=== PATIENT | male | born 1950 | race Caucasian/White ===

== ENCOUNTER 2020-11-16 15:03 | Inpatient (IN) | payer MEDICARE, OTHER ==
[~2020-11-16 15:03] MED LIST: Iopamidol-370 76% 500 ML 1 ML ONE
[2020-11-16] MEDS ORDERED: Norepinephrine 8 MG/0.9% NS 250 ML ONE (15:20)
[2020-11-16] MEDS ORDERED: Cefepime 2 GM VIAL ONE (15:37)
[2020-11-16 15:40] LABS: Actual Bicarbonate (HCO3a) 26.1 mEq/L (22-28); Analyzer IN Cardio ER; Base Excess (BEa) 0.1 mEq/L (-2.0 to +3.0); CO2 Tension 47.2 mmHg (35.0-45.0); Calcium, Ionized (arterial) 1.24 mmol/L (1.12-1.30); Carboxyhemoglobin (COHb) 0.7 gm% (0.0-3.0); Hemoglobin (Hb) 15.6 g/dL (14.0-18.0); O2 Tension (PaO2), arterial 93.3 mmHg (> 80.0); Potassium - ABG Lab 3.96 mmol/L (3.70-5.30); pH, Arterial 7.36 (7.35-7.45)
[2020-11-16 15:41] LABS: Puncture Site RBA
[2020-11-16 16:04] LABS: #Eosinphils 0.1 thou/uL (0.0-0.7); #Monocytes 1.3 thou/uL (0.11-0.59); #Neutrophils 10.3 thou/uL (1.40-6.50); %Basophils 0.2 % (0.0-1.0); %Eosinophils 0.9 % (0.0-10.0); %Lymphocytes 14.7 % (21.0-51.0); %Monocytes 9.2 % (0.0-10.0); Hemoglobin 15.8 g/dL (14.0-18.0); Mean Corpuscular HGB CONC 31.2 g/dL (32.0-36.0); Mean Corpuscular Volume 96.1 fL (78.0-98.0); Mean Platelet Volume 8.1 fL (7.4-10.4); Platelet Count 290 thou/uL (130-400); RBC Distribution Width 12.5 % (11.5-14.5); Red Blood Cell (RBC) Count 5.27 mill/uL (4.70-6.10); White Blood Cell (WBC) Count 13.7 thou/uL (4.8-10.8)
[2020-11-16 16:16] LABS: INR-International Normal Ratio 2.3; PTT 32.8 sec (22.9-36.1); Prothrombin Time 25.2 sec (12.0-14.7)
[2020-11-16 16:18] LABS: D-Dimer Test Less than 0.27 *mcg/mL (0.27-0.43)
[2020-11-16 16:23] LABS: Anion Gap 15 mmol/L (10-20); Carbon Dioxide 23 mmol/L (23-31); Chloride 105 mmol/L (98-107); Potassium 3.7 mmol/L (3.5-5.1); Sodium 139 mmol/L (136-145)
[2020-11-16 16:24] LABS: ALT (SGPT) 24 U/L (8-55); AST (SGOT) 25 U/L (5-34); Albumin 3.9 g/dL (3.4-4.8); Alkaline Phosphatase 72 U/L (40-110); BUN (Urea Nitrogen) 17 mg/dL (8.4-25.7); Bilirubin, Total 0.6 mg/dL (0.2-1.2); CK (CPK) 375 U/L (30-200); Calc. Creatinine Clearance 0 mL/min (70-130); Calcium 9.7 mg/dL (7.8-10.44); Glucose 124 mg/dL (80-115); Protein, Total 6.9 g/dL (5.8-8.1)
[2020-11-16 17:00] LABS: SARS-CoV-2 NAA Rapid Test Not Detected (NotDetected)
[2020-11-16] MEDS ORDERED: Vancomycin 1 GM/200 ML BAG ONE (17:00)
[2020-11-16] MEDS ORDERED: Midazolam HCl 2 mg/2 ml Vial ONE (17:29)
[2020-11-16] MEDS ORDERED: Midazolam HCl 5 mg/ml Vial ONE (17:29)
[2020-11-16] MEDS ORDERED: Lorazepam 2 MG/ML VIAL ONE (18:28)
[2020-11-16 18:59] LABS: Lactic Acid 2.3 mmol/L (0.5-2.2)
[2020-11-16] MEDS ORDERED: Rocuronium Bromide 10 MG/ML (10ML VIAL) ONE (19:41)
[2020-11-16 20:42] LABS: Troponin I Less than 0.010 ng/mL (< 0.028)
[2020-11-16] MEDS ORDERED: Ondansetron PF 4 MG/2 ML Vial IVP PRN (21:00)
[2020-11-16] MEDS ORDERED: Acetaminophen 650 MG Suppository PR PRN (21:00)
[2020-11-16] MEDS ORDERED: Ondansetron ODT 4 MG TAB PO PRN (21:00)
[2020-11-16 21:34] LABS: #Lymphocytes 1.4 thou/uL (1.20-3.40); #Monocytes 0.8 thou/uL (0.11-0.59); #Neutrophils 12.5 thou/uL (1.40-6.50); %Basophils 0.2 % (0.0-1.0); %Eosinophils 0.3 % (0.0-10.0); %Lymphocytes 9.2 % (21.0-51.0); %Monocytes 5.3 % (0.0-10.0); Hemoglobin 14.7 g/dL (14.0-18.0); Mean Corpuscular HGB CONC 33.9 g/dL (32.0-36.0); Mean Corpuscular Volume 94.6 fL (78.0-98.0); Mean Platelet Volume 7.7 fL (7.4-10.4); Platelet Count 220 thou/uL (130-400); RBC Distribution Width 12.4 % (11.5-14.5); Red Blood Cell (RBC) Count 4.58 mill/uL (4.70-6.10); White Blood Cell (WBC) Count 14.7 thou/uL (4.8-10.8)
[2020-11-16 21:56] LABS: ALT (SGPT) 19 U/L (8-55); AST (SGOT) 23 U/L (5-34); Albumin 3.3 g/dL (3.4-4.8); Alkaline Phosphatase 63 U/L (40-110); Anion Gap 12 mmol/L (10-20); BUN (Urea Nitrogen) 17 mg/dL (8.4-25.7); Bilirubin, Total 0.5 mg/dL (0.2-1.2); Calc. Creatinine Clearance 0 mL/min (70-130); Carbon Dioxide 23 mmol/L (23-31); Chloride 108 mmol/L (98-107); Globulin 2.5 g/dL (2.4-3.5); Glucose 132 mg/dL (80-115); Potassium 4.4 mmol/L (3.5-5.1); Protein, Total 5.8 g/dL (5.8-8.1); Sodium 139 mmol/L (136-145)
[2020-11-16 23:43] LABS: Troponin I Less than 0.010 ng/mL (< 0.028)
[2020-11-16] MEDS: metroNIDAZOLE 500 MG in Premix Bag 1 BAG IVPB SCH (23:56)
[2020-11-17] LABS: Bacteria/HPF None Seen HPF (None Seen); Bilirubin Negative (Negative); Blood, Urine Negative (Negative); Clarity Clear (Clear); Glucose, Urine (Dipstick) Normal (Negative); Ketone, Urine Negative (Negative); Leukocyte Negative Leu/uL (Negative); Nitrite Negative (Negative); Protein, Urine (Dipstick) 10 mg/dL (Neg-Trace); RBC/HPF 0-3 HPF (0-3); Squamous Epithelial 0-3 HPF (0-3); Urobilinogen Normal mg/dL (Less than 2); WBC/HPF 0-3 HPF (0-3)
[2020-11-17 00:02] LABS: Specific Gravity, Urine 1.051 (1.002-1.036)
[2020-11-17 00:03] LABS: Urine Culture Reflex No No
[2020-11-17] MEDS ORDERED: Vancomycin 1.5 GRAM/300 ML BAG 1.5 GM in Premix Bag 1 BAG IVPB SCH (00:30)
[2020-11-17] MEDS ORDERED: Zolpidem Tartrate 5 MG TAB PO SCH ×2 (00:30→22:00)
[2020-11-17] MEDS ORDERED: Norepinephrine 8 MG/0.9% NS 250 ML IVPB SCH (01:30)
[2020-11-17 04:16] LABS: Anion Gap 13 mmol/L (10-20); BUN (Urea Nitrogen) 15 mg/dL (8.4-25.7); Calc. Creatinine Clearance 233 mL/min (70-130); Calcium 8.8 mg/dL (7.8-10.44); Carbon Dioxide 22 mmol/L (23-31); Chloride 105 mmol/L (98-107); Glucose 112 mg/dL (80-115); Sodium 136 mmol/L (136-145)
[2020-11-17 04:24] LABS: #Basophils 0.1 thou/uL (0.0-0.2); #Eosinphils 0.1 thou/uL (0.0-0.7); #Lymphocytes 2.6 thou/uL (1.20-3.40); #Monocytes 1.9 thou/uL (0.11-0.59); #Neutrophils 11.3 thou/uL (1.40-6.50); %Basophils 0.3 % (0.0-1.0); %Eosinophils 0.5 % (0.0-10.0); %Lymphocytes 16.4 % (21.0-51.0); %Monocytes 11.6 % (0.0-10.0); %Neutrophils 71.2 % (42.0-75.0); Hemoglobin 14.6 g/dL (14.0-18.0); Mean Corpuscular HGB CONC 33.2 g/dL (32.0-36.0); Mean Corpuscular Hemoglobin 31.7 pg (27.0-31.0); Mean Corpuscular Volume 95.4 fL (78.0-98.0); Mean Platelet Volume 8.9 fL (7.4-10.4); Platelet Count 204 thou/uL (130-400); RBC Distribution Width 12.7 % (11.5-14.5); Red Blood Cell (RBC) Count 4.62 mill/uL (4.70-6.10); White Blood Cell (WBC) Count 15.9 thou/uL (4.8-10.8)
[2020-11-17] MEDS: metroNIDAZOLE 500 MG in Premix Bag 1 BAG IVPB SCH ×3 (06:25→21:11)
[2020-11-17] MEDS ORDERED: Cefepime 2 GM in Sodium Chloride 0.9% 100 ML IVPB SCH (08:00)
[2020-11-17] MEDS: Vancomycin 1.5 GRAM/300 ML BAG 1.5 GM in Premix Bag 1 BAG IVPB SCH ×3 (08:02→23:11)
[2020-11-17] MEDS ORDERED: Enoxaparin Sodium 40 MG/0.4 ML SYRINGE SC SCH (09:00)
[2020-11-17] MEDS ORDERED: Electrolyte Replacement Protocol FS PRN (10:00)
[2020-11-17 10:15] LABS: Magnesium 1.8 mg/dL (1.6-2.6)
[2020-11-17 10:37] LABS: Phosphorus 4.1 mg/dL (2.3-4.7)
[2020-11-17] MEDS: Magnesium 2 GM/50 ML 2 GM in Premix Bag 1 BAG IVPB SCH ×3 (10:45→13:20)
[2020-11-17] MEDS: Cefepime 2 GM in Sodium Chloride 0.9% 100 ML IVPB SCH ×2 (10:56→17:31)
[2020-11-17] MEDS: Acetaminophen 325 MG TAB PO PRN (13:59)
[2020-11-17] MEDS ORDERED: Sodium Chloride 0.9% (PF) 10 ML VIAL FS PRN (14:15)
[2020-11-17] MEDS ORDERED: Digoxin 0.5 MG/2 ML AMP SLOW IVP SCH (17:00)
[2020-11-17] MEDS: Dronedarone HCl 400 MG TAB PO SCH (17:10)
[2020-11-17] MEDS: Rivaroxaban 10 MG TAB PO SCH (17:55)
[2020-11-17] MEDS: Pantoprazole 40 MG VIAL IVP SCH (21:12)
[2020-11-17] MEDS: HYDROcodone/Acetaminophen 5/325 mg Tablet PO PRN (23:08)
[2020-11-17] MEDS: Digoxin 0.5 MG/2 ML AMP SLOW IVP SCH (23:12)
[2020-11-17 23:38] LABS: Vancomycin, Trough 20.1 ug/mL
[2020-11-18] MEDS: Cefepime 2 GM in Sodium Chloride 0.9% 100 ML IVPB SCH ×2 (02:41→08:03)
[2020-11-18 03:17] LABS: #Eosinphils 0.1 thou/uL (0.0-0.7); #Lymphocytes 2.1 thou/uL (1.20-3.40); #Monocytes 1.2 thou/uL (0.11-0.59); #Neutrophils 7.1 thou/uL (1.40-6.50); %Basophils 0.4 % (0.0-1.0); %Eosinophils 1.1 % (0.0-10.0); %Lymphocytes 20.2 % (21.0-51.0); %Monocytes 11.3 % (0.0-10.0); Hemoglobin 14.8 g/dL (14.0-18.0); Mean Corpuscular HGB CONC 33.1 g/dL (32.0-36.0); Mean Corpuscular Hemoglobin 31.6 pg (27.0-31.0); Mean Corpuscular Volume 95.7 fL (78.0-98.0); Mean Platelet Volume 7.7 fL (7.4-10.4); Platelet Count 185 thou/uL (130-400); RBC Distribution Width 12.6 % (11.5-14.5); Red Blood Cell (RBC) Count 4.69 mill/uL (4.70-6.10); White Blood Cell (WBC) Count 10.6 thou/uL (4.8-10.8)
[2020-11-18 03:35] LABS: Anion Gap 12 mmol/L (10-20); BUN (Urea Nitrogen) 13 mg/dL (8.4-25.7); Calc. Creatinine Clearance 249 mL/min (70-130); Calcium 8.9 mg/dL (7.8-10.44); Carbon Dioxide 21 mmol/L (23-31); Chloride 105 mmol/L (98-107); Glucose 78 mg/dL (80-115); Sodium 134 mmol/L (136-145)
[2020-11-18] MEDS: metroNIDAZOLE 500 MG in Premix Bag 1 BAG IVPB SCH (05:03)
[2020-11-18] MEDS: Digoxin 0.5 MG/2 ML AMP SLOW IVP SCH ×2 (05:04→09:37)
[2020-11-18] MEDS: Dronedarone HCl 400 MG TAB PO SCH ×2 (07:20→16:28)
[2020-11-18] MEDS ORDERED: Furosemide 40 MG/4 ML VIAL ONE (09:33)
[2020-11-18] MEDS ORDERED: VANCOMYCIN 2 GRAM/400 ML BAG 2 GM in Premix Bag 1 BAG IVPB SCH (12:00)
[2020-11-18] MEDS ORDERED: Diltiazem 125 MG in Sodium Chloride 0.9% 100 ML IVPB SCH (16:00)
[2020-11-18] MEDS: Rivaroxaban 10 MG TAB PO SCH (16:29)
[2020-11-18] MEDS: Pantoprazole 40 MG VIAL IVP SCH (21:02)
[2020-11-18] MEDS: HYDROcodone/Acetaminophen 5/325 mg Tablet PO PRN (22:29)
[2020-11-19] MEDS: Zolpidem Tartrate 5 MG TAB PO PRN ×2 (00:29→23:15)
[2020-11-19 03:45] LABS: #Eosinphils 0.1 thou/uL (0.0-0.7); #Lymphocytes 1.8 thou/uL (1.20-3.40); #Monocytes 1.2 thou/uL (0.11-0.59); #Neutrophils 6.8 thou/uL (1.40-6.50); %Basophils 0.4 % (0.0-1.0); %Lymphocytes 18.2 % (21.0-51.0); %Neutrophils 68.4 % (42.0-75.0); Mean Corpuscular HGB CONC 33.1 g/dL (32.0-36.0); Mean Corpuscular Hemoglobin 31.6 pg (27.0-31.0); Mean Corpuscular Volume 95.5 fL (78.0-98.0); Mean Platelet Volume 7.8 fL (7.4-10.4); Platelet Count 194 thou/uL (130-400); RBC Distribution Width 12.6 % (11.5-14.5); Red Blood Cell (RBC) Count 4.73 mill/uL (4.70-6.10); White Blood Cell (WBC) Count 9.9 thou/uL (4.8-10.8)
[2020-11-19 04:25] LABS: Anion Gap 14 mmol/L (10-20); BUN (Urea Nitrogen) 12 mg/dL (8.4-25.7); Calc. Creatinine Clearance 247 mL/min (70-130); Calcium 9.1 mg/dL (7.8-10.44); Carbon Dioxide 17 mmol/L (23-31); Chloride 107 mmol/L (98-107); Glucose 82 mg/dL (80-115); Potassium 4.2 mmol/L (3.5-5.1); Sodium 134 mmol/L (136-145)
[2020-11-19] MEDS ORDERED: Digoxin 0.5 MG/2 ML AMP SLOW IVP SCH (10:30)
[2020-11-19] MEDS: Dronedarone HCl 400 MG TAB PO SCH ×2 (10:39→17:45)
[2020-11-19] MEDS: Furosemide 40 MG TAB PO SCH (10:40)
[2020-11-19] MEDS: Metamucil PACK PO SCH (10:41)
[2020-11-19] MEDS: Acetaminophen 325 MG TAB PO PRN (15:32)
[2020-11-19] MEDS: HYDROcodone/Acetaminophen 5/325 mg Tablet PO PRN (17:45)
[2020-11-19] MEDS: Rivaroxaban 10 MG TAB PO SCH (17:45)
[2020-11-19] MEDS: Diltiazem 125 MG in Sodium Chloride 0.9% 100 ML IVPB SCH (18:50)
[2020-11-20 03:52] LABS: #Basophils 0.1 thou/uL (0.0-0.2); #Eosinphils 0.1 thou/uL (0.0-0.7); #Lymphocytes 1.7 thou/uL (1.20-3.40); #Monocytes 1.3 thou/uL (0.11-0.59); #Neutrophils 7.4 thou/uL (1.40-6.50); %Basophils 0.5 % (0.0-1.0); %Eosinophils 1.1 % (0.0-10.0); %Lymphocytes 16.1 % (21.0-51.0); %Monocytes 12.4 % (0.0-10.0); %Neutrophils 69.9 % (42.0-75.0); Hemoglobin 15.1 g/dL (14.0-18.0); Mean Corpuscular HGB CONC 33.5 g/dL (32.0-36.0); Mean Corpuscular Hemoglobin 31.7 pg (27.0-31.0); Mean Corpuscular Volume 94.4 fL (78.0-98.0); Mean Platelet Volume 8.1 fL (7.4-10.4); Platelet Count 209 thou/uL (130-400); RBC Distribution Width 12.7 % (11.5-14.5); Red Blood Cell (RBC) Count 4.76 mill/uL (4.70-6.10); White Blood Cell (WBC) Count 10.6 thou/uL (4.8-10.8)
[2020-11-20 04:10] LABS: Anion Gap 20 mmol/L (10-20); BUN (Urea Nitrogen) 12 mg/dL (8.4-25.7); Calc. Creatinine Clearance 242 mL/min (70-130); Calcium 9.3 mg/dL (7.8-10.44); Carbon Dioxide 14 mmol/L (23-31); Chloride 103 mmol/L (98-107); Glucose 88 mg/dL (80-115); Potassium 3.8 mmol/L (3.5-5.1); Sodium 133 mmol/L (136-145)
[2020-11-20 05:48] VITALS: BMI 47.9
[2020-11-20] MEDS: Diltiazem 125 MG in Sodium Chloride 0.9% 100 ML IVPB SCH ×2 (06:42→18:55)
[2020-11-20] MEDS: Dronedarone HCl 400 MG TAB PO SCH ×2 (08:57→18:53)
[2020-11-20] MEDS: Furosemide 40 MG TAB PO SCH (08:57)
[2020-11-20] MEDS: Digoxin 0.125 MG TAB PO SCH (08:57)
[2020-11-20] MEDS: Metamucil PACK PO SCH (18:52)
[2020-11-20] MEDS: Rivaroxaban 10 MG TAB PO SCH (18:53)
[2020-11-20] MEDS ORDERED: clonazePAM 0.5 MG TAB PO PRN (20:30)
[2020-11-20] MEDS ORDERED: Polyethylene Glycol 3350 17 GM Packet PO SCH (20:45)
[2020-11-20] MEDS ORDERED: Atorvastatin Calcium 40 MG TAB PO SCH (20:45)
[2020-11-20] MEDS: Acetaminophen 325 MG TAB PO PRN (20:48)
[2020-11-20 21:31] LABS: Anion Gap 17 mmol/L (10-20); BUN (Urea Nitrogen) 11 mg/dL (8.4-25.7); Calc. Creatinine Clearance 204 mL/min (70-130); Calcium 9.8 mg/dL (7.8-10.44); Carbon Dioxide 19 mmol/L (23-31); Chloride 102 mmol/L (98-107); Glucose 139 mg/dL (80-115); Magnesium 1.6 mg/dL (1.6-2.6); Potassium 4.4 mmol/L (3.5-5.1); Sodium 134 mmol/L (136-145)
[2020-11-20] MEDS ORDERED: Magnesium 2 GM/50 ML 2 GM in Premix Bag 1 BAG IVPB SCH (23:00)
[2020-11-20] MEDS: Zolpidem Tartrate 5 MG TAB PO PRN (23:29)
[2020-11-21 04:05] LABS: #Eosinphils 0.1 thou/uL (0.0-0.7); #Lymphocytes 1.7 thou/uL (1.20-3.40); #Monocytes 1.6 thou/uL (0.11-0.59); #Neutrophils 8.6 thou/uL (1.40-6.50); %Basophils 0.3 % (0.0-1.0); %Eosinophils 1.2 % (0.0-10.0); %Lymphocytes 13.8 % (21.0-51.0); %Monocytes 13.3 % (0.0-10.0); %Neutrophils 71.4 % (42.0-75.0); Hemoglobin 14.4 g/dL (14.0-18.0); Mean Corpuscular HGB CONC 32.5 g/dL (32.0-36.0); Mean Corpuscular Hemoglobin 30.8 pg (27.0-31.0); Mean Corpuscular Volume 94.7 fL (78.0-98.0); Mean Platelet Volume 8.2 fL (7.4-10.4); Platelet Count 212 thou/uL (130-400); RBC Distribution Width 12.7 % (11.5-14.5); Red Blood Cell (RBC) Count 4.69 mill/uL (4.70-6.10); White Blood Cell (WBC) Count 12.1 thou/uL (4.8-10.8)
[2020-11-21 04:18] LABS: Anion Gap 16 mmol/L (10-20); BUN (Urea Nitrogen) 9 mg/dL (8.4-25.7); Calc. Creatinine Clearance 220 mL/min (70-130); Calcium 9.5 mg/dL (7.8-10.44); Carbon Dioxide 22 mmol/L (23-31); Chloride 102 mmol/L (98-107); Glucose 117 mg/dL (80-115); Potassium 3.6 mmol/L (3.5-5.1); Sodium 136 mmol/L (136-145)
[2020-11-21] MEDS: Diltiazem 125 MG in Sodium Chloride 0.9% 100 ML IVPB SCH ×2 (05:18→13:23)
[2020-11-21] MEDS: Furosemide 40 MG TAB PO SCH (10:09)
[2020-11-21] MEDS: Digoxin 0.125 MG TAB PO SCH (10:09)
[2020-11-21] MEDS: Dronedarone HCl 400 MG TAB PO SCH ×2 (10:09→18:00)
[2020-11-21] MEDS: Atorvastatin Calcium 40 MG TAB PO SCH (10:09)
[2020-11-21] MEDS: Metamucil PACK PO SCH (10:10)
[2020-11-21] MEDS: Rivaroxaban 10 MG TAB PO SCH (18:00)
[2020-11-21] MEDS ORDERED: clonazePAM 0.5 MG TAB PO PRN (21:00)
[2020-11-21] MEDS: Zolpidem Tartrate 5 MG TAB PO PRN (22:03)
[2020-11-22 05:18] LABS: #Eosinphils 0.1 thou/uL (0.0-0.7); #Lymphocytes 1.3 thou/uL (1.20-3.40); #Monocytes 1.3 thou/uL (0.11-0.59); #Neutrophils 7.9 thou/uL (1.40-6.50); %Basophils 0.3 % (0.0-1.0); %Eosinophils 1.3 % (0.0-10.0); %Lymphocytes 12.3 % (21.0-51.0); %Monocytes 12.1 % (0.0-10.0); Hemoglobin 14.2 g/dL (14.0-18.0); Mean Corpuscular HGB CONC 32.4 g/dL (32.0-36.0); Mean Corpuscular Hemoglobin 30.4 pg (27.0-31.0); Mean Platelet Volume 7.5 fL (7.4-10.4); Platelet Count 206 thou/uL (130-400); RBC Distribution Width 12.9 % (11.5-14.5); Red Blood Cell (RBC) Count 4.68 mill/uL (4.70-6.10); White Blood Cell (WBC) Count 10.7 thou/uL (4.8-10.8)
[2020-11-22 05:39] LABS: Anion Gap 15 mmol/L (10-20); BUN (Urea Nitrogen) 8 mg/dL (8.4-25.7); Calc. Creatinine Clearance 164 mL/min (70-130); Calcium 9.3 mg/dL (7.8-10.44); Carbon Dioxide 24 mmol/L (23-31); Chloride 101 mmol/L (98-107); Glucose 96 mg/dL (80-115); Potassium 3.4 mmol/L (3.5-5.1); Sodium 137 mmol/L (136-145)
[2020-11-22] MEDS ORDERED: Potassium Chloride 20 MEQ TAB PO SCH (06:30)
[2020-11-22] MEDS: Furosemide 40 MG TAB PO SCH (07:28)
[2020-11-22] MEDS ORDERED: Metoprolol Tartrate 50 MG TAB PO SCH (09:00)
[2020-11-22] MEDS: Atorvastatin Calcium 40 MG TAB PO SCH (09:14)
[2020-11-22] MEDS: Dronedarone HCl 400 MG TAB PO SCH ×2 (09:14→17:22)
[2020-11-22] MEDS: Digoxin 0.125 MG TAB PO SCH (09:14)
[2020-11-22] MEDS: Metamucil PACK PO SCH (09:14)
[2020-11-22 16:02] VITALS: BP 121/72; TEMP 98.1
[2020-11-22] MEDS: Rivaroxaban 10 MG TAB PO SCH (17:22)
== END 2020-11-22 18:02 | disposition home or self-care (01) | DRG 871 ==
LOC: ERS 15:03 → CCU 20:09 → 2SE 11-21 20:01
PROVIDERS: ADMIT Student in an Organized Health Care Education/Training Program; ATTEND Internal Medicine
PROC: 5A09457 Assistance with Respiratory Ventilation, 24-96 Consecutive Hours, Continuous Positive Airway Pressure (ICD-10-PCS; 2020-11-16)
PROC: 5A2204Z Restoration of Cardiac Rhythm, Single (ICD-10-PCS; principal; 2020-11-22)
DX: A41.9 Sepsis, unspecified organism (principal); R65.21 Severe sepsis with septic shock; G93.41 Metabolic encephalopathy; J96.90 Respiratory failure, unspecified, unspecified whether with hypoxia or hypercapnia; J44.1 Chronic obstructive pulmonary disease with (acute) exacerbation; I42.9 Cardiomyopathy, unspecified; I47.1 Supraventricular tachycardia; I95.9 Hypotension, unspecified; G62.9 Polyneuropathy, unspecified; E66.9 Obesity, unspecified; G47.33 Obstructive sleep apnea (adult) (pediatric); I25.10 Atherosclerotic heart disease of native coronary artery without angina pectoris; D72.829 Elevated white blood cell count, unspecified; I50.9 Heart failure, unspecified; I48.0 Paroxysmal atrial fibrillation; I11.0 Hypertensive heart disease with heart failure; E78.00 Pure hypercholesterolemia, unspecified; N40.0 Benign prostatic hyperplasia without lower urinary tract symptoms; Z20.822 Contact with and (suspected) exposure to COVID-19; Z98.84 Bariatric surgery status; Z98.890 Other specified postprocedural states; Z79.51 Long term (current) use of inhaled steroids; Z79.899 Other long term (current) drug therapy; Z87.891 Personal history of nicotine dependence; Z68.34 Body mass index [BMI] 34.0-34.9, adult
CPT/HCPCS: 0240U; 36415; 36416; 36556; 36600; 70450; 71045; 71275; 80048; 80053; 80162; 80202; 81001; 82533; 82550; 82805; 83605; 83735; 83880; 84100; 84443; 84484; 85025; 85379; 85610; 85730; 86850; 86900; 86901; 87040; 93005; 93010; 93306; 93880; 94640; 94660; 95712; 95819; 95957; 96365; 96366; 96375; C9113; J0692; J1160; J1650; J1940; J2060; J2250; J3370; J3475; J3490; J7620; Q9967